=== PATIENT | female | born 1930 ===

== ENCOUNTER 2017-04-14 10:11 | Inpatient (IN) ==
[2017-04-14] MEDS ORDERED: ENOXAPARIN 80 MG/0.8 ML SYRINGE SUBCUT SCH (14:30)
[2017-04-14 14:51] LABS: Basophils % 0.1 % (0.0-0.8); Eosinophils % 0.4 % (0.00-10.9); Hematocrit 35.6 VOL% (35.7-47.0); Hemoglobin 12.2 GM/DL (12.0-16.0); Immature Granulocytes % 0.4 %; Immature Granulocytes Absolute 0.03 #; Lymphocytes # 0.8 10*3/uL (1.4-4.0); Lymphocytes % 10.9 % (21.3-54.2); Mean Corpuscular HGB Conc 34.3 GM/DL (32-36); Mean Corpuscular Hemoglobin 31 PG (27-34); Mean Corpuscular Volume 90.8 FL (87-102); Monocytes # 0.7 10*3/uL (0.11-0.8); Monocytes % 9.9 % (1.7-12.7); Neutrophils # 5.8 10*3/uL (1.4-7.4); Neutrophils % 78.3 % (38.7-73.9); Platelet Count 190 T/CUMM (130-400); Red Blood Count 3.92 MC/CUMM (3.8-5.5); Red Cell Distribution Width 16.6 % (9.3-17.3); White Blood Count 7.5 T/CUMM (4-12)
[2017-04-14 15:11] LABS: Calcium 8.1 MG/DL (8.5-10.1); Osmolality,Calculated 277.5 MOS/KG (273-304)
[2017-04-14] MEDS ORDERED: ENOXAPARIN 40 MG/0.4 ML SYRINGE SUBCUT SCH (16:00)
[2017-04-14] MEDS: ASPIRIN 325 MG TABLET PO SCH (17:10)
[2017-04-14] MEDS: CLOPIDOGREL 75 MG TABLET PO SCH (17:10)
[2017-04-14] MEDS ORDERED: ATORVASTATIN 40 MG TABLET PO SCH (21:00)
[2017-04-15 08:40] LABS: Osmolality,Calculated 278.4 MOS/KG (273-304); Risk Ratio 2.88; VLDL CHOLESTEROL 20.6 MG/DL
[2017-04-15] MEDS: CLOPIDOGREL 75 MG TABLET PO SCH (10:23)
[2017-04-15] MEDS: ASPIRIN 325 MG TABLET PO SCH (10:23)
[2017-04-15] MEDS ORDERED: ZINC OXIDE PASTE 113 GM TUBE TOP SCH (10:30)
[2017-04-15 12:24] VITALS: BP 145/75
[2017-04-15 17:23] LABS: Barbiturates Screen,Urine Negative (Negative); Benzodiazepines Screen,Urine Negative (Negative); Cannabinoid Screen,Urine Negative (Negative); Opiate Screen,Urine Negative (Negative); Phencyclidine Screen,Urine Negative (Negative)
[2017-04-15] MEDS ORDERED: ENOXAPARIN 40 MG/0.4 ML SYRINGE SUBCUT SCH (21:00)
== END 2017-04-15 18:35 | DRG 65 ==
LOC: N.2E 12:28
PROVIDERS: ADMIT Family Medicine; ATTEND Family Medicine

== ENCOUNTER 2018-09-10 18:19 | Inpatient (IN) ==
[2018-09-10 21:55] LABS: Basophils # 0.1 10*3/uL (0.0-0.2); Basophils % 0.4 % (0.0-0.8); Eosinophils # 0.8 10*3/uL (0.0-0.87); Hematocrit 39.9 VOL% (35.7-47.0); Hemoglobin 12.4 GM/DL (12.0-16.0); Immature Granulocytes % 4.4 %; Immature Granulocytes Absolute 1.72 #; Lymphocytes # 0.8 10*3/uL (1.4-4.0); Lymphocytes % 1.9 % (21.3-54.2); Mean Corpuscular HGB Conc 31.1 GM/DL (32-36); Mean Corpuscular Hemoglobin 29 PG (27-34); Mean Corpuscular Volume 93.9 FL (87-102); Monocytes # 2.6 10*3/uL (0.11-0.8); Monocytes % 6.7 % (1.7-12.7); NRBC # 0.03 10*3/uL; Neutrophils # 32.9 10*3/uL (1.4-7.4); Neutrophils % 84.6 % (38.7-73.9); Red Blood Count 4.25 MC/CUMM (3.8-5.5); Red Cell Distribution Width 17.1 % (9.3-17.3); White Blood Count 38.9 T/CUMM (4-12)
[2018-09-10] MEDS ORDERED: ASPIRIN EC 325 MG TABLET PO ONE (21:58)
[2018-09-10] MEDS ORDERED: MORPHINE 4 MG/1 ML VIAL IV ONE (21:58)
[2018-09-10 22:01] LABS: Platelet Count 74 T/CUMM (130-400)
[2018-09-10] MEDS ORDERED: MORPHINE 4 MG/1 ML VIAL ONE (22:01)
[2018-09-10] MEDS ORDERED: ACETAMINOPHEN 325 MG TABLET PO PRN (22:06)
[2018-09-10] MEDS ORDERED: BISACODYL 5 MG TABLET PO PRN (22:06)
[2018-09-10] MEDS ORDERED: ONDANSETRON 4 MG/2 ML VIAL IV PRN (22:06)
[2018-09-10] MEDS ORDERED: NICOTINE 21 MG/24 HR PATCH TRANSDERM PRN (22:06)
[2018-09-10] MEDS ORDERED: MORPHINE 4 MG/1 ML VIAL IV PRN (22:06)
[2018-09-10] MEDS ORDERED: diphenhydrAMINE CAP 25 MG CAPSULE PO PRN (22:06)
[2018-09-10] MEDS ORDERED: guaiFENesin/DM ER 600-30 MG TABLET PO PRN (22:06)
[2018-09-10 22:12] LABS: Alanine Aminotransferase 22 U/L (13-56); Albumin 2.5 G/DL (3.4-5.0); Alkaline Phosphatase 186 U/L (45-117); Aspartate Amino Transferase 97 U/L (0-37); Blood Urea Nitrogen 21 MG/DL (7-18); Calcium 8.2 MG/DL (8.5-10.1); Glucose 203 MG/DL (74-106); Osmolality,Calculated 287.4 MOS/KG (273-304); Potassium 3.9 MMOL/L (3.5-5.1); Sodium 140 MMOL/L (136-145); Total Protein 6.6 G/DL (6.4-8.3)
[2018-09-10 22:32] LABS: Allen Test Positive
[2018-09-10 22:33] LABS: ABG Base Excess -8.1 MMOL/L (-2.5-2.5); ABG HCO3 14.3 MMOL/L (20-26); ABG Oxygen Saturation 97.6 % (95-100); ABG PCO2 22.4 MM HG (35-48); ABG PH 7.424 (7.35-7.45); ABG PO2 103.2 MM HG (80-95)
[2018-09-10] MEDS ORDERED: ENOXAPARIN 80 MG/0.8 ML SYRINGE SUBCUT ONE (22:33)
[2018-09-10 22:41] LABS: Risk Ratio 2.54; Thyroid Stimulating Hormone 2.24 uIU/ml (0.358-3.74); VLDL CHOLESTEROL 23.4 MG/DL
[2018-09-10] MEDS: SODIUM CHLORIDE 0.9% 1,000 ML IV SCH (22:45)
[2018-09-10 22:47] LABS: Band Neutrophils 11 % (0-10); Elliptocytes Few; Eosinophils 1 % (0-10); Lymphocytes 1 % (20-55); Metamyelocytes 4 %; Platelet Estimate Decreased; Segmented Neutrophils 77 % (50-85)
[2018-09-10 22:48] LABS: Anisocytosis 1+; Macrocytosis 1+; Polychromasia Few
[2018-09-10 22:49] LABS: Total Cells Counted 100
[2018-09-10] MEDS ORDERED: VANCOMYCIN INJ 1,250 MG in SODIUM CHLORIDE 0.9% 250 ML IV ONE (23:00)
[2018-09-10] MEDS: MEROPENEM 1,000 MG in SODIUM CHLORIDE 0.9% 100 ML IV SCH (23:24)
[2018-09-10] MEDS ORDERED: SODIUM CHLORIDE 0.9% 1,000 ML IV ONE (23:30)
[2018-09-11] MEDS ORDERED: SODIUM CHLORIDE 0.9% 500 ML IV ONE (01:52)
[2018-09-11] MEDS ORDERED: LORazepam 2 MG/1 ML VIAL IV ONE (03:39)
[2018-09-11] MEDS ORDERED: ALBUTEROL/IPRATROPIUM 3 ML NEB RESP TX ONE (04:14)
[2018-09-11 04:37] LABS: Amorphous Crystals,Urine Occasional /HPF (Few); Apearance,Urine CLOUDY (Clear); Bilirubin,Urine Negative (Negative); Blood, Urine Large mg/dL (Negative); Glucose,Urine (UA) 50 mg/dL (Negative); Ketones,Urine Negative (Negative); Mucus,Urine Few /LPF (Occasional); Nitrite,Urine Negative (Negative); Protein,Urine 100 MG/DL; RBC,Urine 14 /HPF (0-4); Squamous Epithelial Cell,Urine Occasional /HPF (0-10); Urine Color Amber (Yellow); Urine Specific Gravity 1.012 (1.001-1.035); Urine Urobilinogen < 2.0 EU/DL (0.2-1.0); WBC,Urine 31 /HPF (0-6)
[2018-09-11] MEDS ORDERED: ALBUTEROL/IPRATROPIUM 3 ML NEB RESP TX SCH (07:00)
[2018-09-11] MEDS: ALBUTEROL/IPRATROPIUM 3 ML NEB RESP TX SCH ×3 (07:12→18:50)
[2018-09-11 07:13] LABS: Basophils # 0.2 10*3/uL (0.0-0.2); Basophils % 0.5 % (0.0-0.8); Eosinophils # 0.9 10*3/uL (0.0-0.87); Eosinophils % 2.1 % (0.00-10.9); Hematocrit 39.9 VOL% (35.7-47.0); Hemoglobin 12.2 GM/DL (12.0-16.0); Immature Granulocytes % 3.4 %; Lymphocytes # 0.9 10*3/uL (1.4-4.0); Lymphocytes % 2.2 % (21.3-54.2); Mean Corpuscular HGB Conc 30.6 GM/DL (32-36); Mean Corpuscular Hemoglobin 30 PG (27-34); Mean Corpuscular Volume 96.8 FL (87-102); Mean Platelet Volume 13.2 FL (9.6-12.0); Monocytes # 2.9 10*3/uL (0.11-0.8); Monocytes % 7.1 % (1.7-12.7); NRBC # 0.05 10*3/uL; Neutrophils # 35.1 10*3/uL (1.4-7.4); Neutrophils % 84.7 % (38.7-73.9); Red Blood Count 4.12 MC/CUMM (3.8-5.5); Red Cell Distribution Width 17.4 % (9.3-17.3)
[2018-09-11 07:16] LABS: Platelet Count 78 T/CUMM (130-400); White Blood Count 41.4 T/CUMM (4-12)
[2018-09-11 07:43] LABS: Band Neutrophils 9 % (0-10); Eosinophils 2 % (0-10); Lymphocytes 2 % (20-55); Platelet Estimate Decreased; Segmented Neutrophils 78 % (50-85); Total Cells Counted 100
[2018-09-11 07:44] LABS: Burr Cells Slight; Hypochromasia 1+; Macrocytosis Slight; Ovalocytes Slight; Polychromasia Slight
[2018-09-11] MEDS: SODIUM CHLORIDE 0.9% 1,000 ML IV SCH ×3 (07:49→20:06)
[2018-09-11 07:57] LABS: Albumin 2.3 G/DL (3.4-5.0); Bilirubin,Total 0.6 MG/DL (0.2-1.0); Calcium 7.4 MG/DL (8.5-10.1); Potassium 4.3 MMOL/L (3.5-5.1); Total Protein 6.3 G/DL (6.4-8.3)
[2018-09-11] MEDS ORDERED: NOREPINEPHRINE 16 MG in SODIUM CHLORIDE 0.9% 234 ML IV PRN (11:09)
[2018-09-11] MEDS ORDERED: NOREPINEPHRINE 8 MG in SODIUM CHLORIDE 0.9% 234 ML IV PRN (11:13)
[2018-09-11] MEDS ORDERED: NOREPINEPHRINE 4 MG/4 ML VIAL IV ONE (11:15)
[2018-09-11] MEDS ORDERED: NOREPINEPHRINE 8 MG in SODIUM CHLORIDE 0.9% 242 ML IV PRN (11:16)
[2018-09-11] MEDS: MEROPENEM 1,000 MG in SODIUM CHLORIDE 0.9% 100 ML IV SCH (11:59)
[2018-09-11] MEDS ORDERED: SODIUM BICARBONATE 50 MEQ/50 ML VIAL IV ONE ×2 (20:06)
[2018-09-11] MEDS ORDERED: PROPOFOL 1,000 MG/100 ML BOTTLE IV ONE (20:08)
[2018-09-11] MEDS ORDERED: SUCCINYLCHOLINE 200 MG/10 ML VIAL ONE (20:09)
[2018-09-11] MEDS ORDERED: VANCOMYCIN INJ 1,000 MG in SODIUM CHLORIDE 0.9% 250 ML IV SCH (21:00)
[2018-09-11 23:44] VITALS: BP 142/64
[2018-09-12] MEDS: ALBUTEROL/IPRATROPIUM 3 ML NEB RESP TX SCH (01:09)
== END 2018-09-11 20:50 | disposition expired | DRG 871 ==
LOC: SUATTDRO 20:45 → N.CC 20:45
PROVIDERS: ADMIT Internal Medicine; ATTEND Internal Medicine